=== PATIENT | male | born 2000 | race Caucasian/White ===

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

== ENCOUNTER 2024-06-23 14:07 | Emergency (ER) | payer OTHER ==
[2024-06-23 14:18] VITALS: RESP 18
--- NOTE | 2024-06-23 14:54 | XR ---
EXAMINATION TYPE: XR foot limited RT DATE OF EXAM: 06/23/2024 COMPARISON: NONE CLINICAL INDICATION: Male, 23 years old with history of crush; TECHNIQUE: Three views are submitted. FINDINGS: Soft tissue edema deforming the base of the proximal phalanx first digit suspicious for fracture. Fra cture extends to the articular surface but not as well seen on the lateral view. IMPRESSION: 1. Soft tissue edema first digit with findings suspicious for fracture base distal phalanx first jonathan hilton [facility], , 06/23/2024 2:51 PM
[2024-06-23] MEDS: KETOROLAC 15 MG/ML 1 ML VIAL IM STA ×2 (15:19→16:45)
[2024-06-23] MEDS: LIDOCAINE 1% INJ 10MG/ML (20 ML MDV) SQ ONE (15:21)
[2024-06-23] MEDS: ACET/COD 300 MG/30 MG STARTER PACK 6 TAB BTL PO STA (17:56)
[2024-06-23 18:00] VITALS: BP 112/86; PULSE 82; TEMP 98
--- NOTE | 2024-06-23 18:36 | ED ---
Lower Extremity Injury HPI - General Chief Complaint: Extremity Injury, Lower Stated Complaint: [facility] R Toe Injury Time Seen by Provider: 06/23/24 14:23 Source: patient, RN notes reviewed Mode of arrival: ambulatory Limitations: no limitations - History of Present Illness Initial Comments: This is a 23-year-old male presenting with right toe injury/pain (8 out of 10) and occurred today. Patient states he was at work when a piece of plywood fell onto his right great toe and caused significant injury despite wearing boots. Patient states he is up-to-date with tetanus. Denies any other injury or complaint. MD Complaint: foot injury Onset/Timin -: hour(s) Injury: Foot: Right Type of Injury: blunt Place: work Severity scale (1-10): 8 Worsens With: weight bearing Context: direct blow - Related Data Previous Rx's Medication Instructions Recorded Ondansetron [Zofran ODT] 4 mg PO Q8HR PRN #5 tab 10/31/21 Bacitracin/Polymyx Oint 1 applic TOPICAL BID #30 gm 06/23/24 [Polysporin Oint] Cephalexin [Keflex] 500 mg PO Q6HR 10 Days #40 cap 06/23/24 Allergies Allergy/AdvReac Type Severity Reaction Status Date / Time venom-honey bee Allergy Unknown Verified 06/23/24 14:18 Review of Systems ROS Statement: Those systems with pertinent positive or pertinent negative responses have been documented in the HPI. ROS Other: All systems not noted in ROS Statement are negative. Past Medical History Past Medical History: No Reported History History of Any Multi-Drug Resistant Organisms: None Reported Past Surgical History: No Surgical Hx Reported Past Psychological History: No Psychological Hx Reported Smoking Status: Former smoker Past Alcohol Use History: Occasional Past Drug Use History: None Reported General Exam Limitations: no limitations General appearance: alert, in no apparent distress Head exam: Present: atraumatic, normocephalic, normal inspection Eye exam: Present: normal appearance, PERRL, EOMI. Absent: scleral icterus, conjunctival injection, periorbital swelling ENT exam: Present: normal exam, mucous membranes moist Neck exam: Present: normal inspection. Absent: tenderness, meningismus, lymphadenopathy Respiratory exam: Present: normal lung sounds bilaterally. Absent: respiratory distress, wheezes, rales, rhonchi, stridor Cardiovascular Exam: Present: regular rate, normal rhythm, normal heart sounds. Absent: systolic murmur, diastolic murmur, rubs, gallop, clicks GI/Abdominal exam: Present: soft, normal bowel sounds. Absent: distended, tenderness, guarding, rebound, rigid Extremities exam: Present: full ROM, tenderness (Positive right great toe edema nail appears detached from nail bed. 2 cm vertical laceration noted on lateral aspect of great toe. Bleeding controlled and no obvious foreign body or deformity), normal capillary refill. Absent: pedal edema, joint swelling, calf tenderness Back exam: Present: normal inspection Neurological exam: Present: alert, oriented X3, CN II-XII intact Psychiatric exam: Present: normal affect, normal mood Skin exam: Present: warm, dry, intact, normal color. Absent: rash Course Vital Signs 06/23/24 06/23/24 14:13 17:58 Temperature 98.4 F 98.0 F Pulse Rate 86 82 Respiratory 18 18 Rate Blood Pressure 110/80 112/86 O2 Sat by Pulse 100 98 Oximetry Procedures - Laceration Laceration #1 Consent Obtained: verbal consent Indication: laceration Site: foot Size (cm): 2 Description: linear Depth: simple, single layer Anesthetic Used: lidocaine 1% Anesthesia Technique: local infiltration Amount (mls): 6 Pre-repair: wound explored, irrigated extensively Type of Sutures: nylon Size of Sutures: 4-0 Number of Sutures: 6 Technique: running Patient Tolerated Procedure: well Additional Comments: Complete removal of right great toenail also performed with ongoing anesthesia following treatment of laceration. Exposed toenail bed covered with 2 x 2 gauze and secured with clear tape. Toe and foot cleaned thoroughly with gauze and sterile water. Medical Decision Making - Medical Decision Making Was pt. sent in by a medical professional or institution (, PA, PATIENT RELATIONS SPECIALIST, urgent care, hospital, or shelter...) When possible be specific @ -No Did you speak to anyone other than the patient for history (EMS, parent, family, police, friend...)? What history was obtained from this source @ -No Did you review nursing and triage notes (agree or disagree)? Why? @ -I reviewed and agree with nursing and triage notes Were old charts reviewed (outside hosp., previous admission, EMS record, old EKG, old radiological studies, urgent care reports/EKG's, shelter records)? Report findings @ -No old charts were reviewed Differential Diagnosis (chest pain, altered mental status, abdominal pain women, abdominal pain men, vaginal bleeding, weakness, fever, dyspnea, syncope, headache, dizziness, GI bleed, back pain, seizure, CVA, palpatations, mental health, musculoskeletal)? @ -Toe fracture, "toe contusion, damage to nail, toe laceration this is not exhaustive but EKG interpreted by me (3pts min.). @ -Not done X-rays interpreted by me (1pt min.). @ -Right foot x-ray shows undisplaced fracture and base of right great toe distal phalanx CT interpreted by me (1pt min.). @ -None done U/S interpreted by me (1pt. min.). @ -None done What testing was considered but not performed or refused? (CT, X-rays, U/S, labs)? Why? @ -None What meds were considered but not given or refused? Why? @ -None Did you discuss the management of the patient with other professionals (professionals i.e. , PA, PATIENT RELATIONS SPECIALIST, lab, RT, psych nurse, social insurance adviser, landscaper, teacher, low altitude air defense officer, case finishing machine adjuster)? Give summary @ -No Was smoking cessation discussed for >3mins.? @ -No Was critical care preformed (if so, how long)? @ -No Were there social determinants of health that impacted care today? How? (Homelessness, low income, unemployed, alcoholism, drug addiction, transportation, low edu. Level, literacy, decrease access to med. care, penitentiary, rehab)? @ -No Was there de-escalation of care discussed even if they declined (Discuss DNR or withdrawal of care, Hospice)? DNR status @ -No What co-morbidities impacted this encounter? (DM, HTN, Smoking, COPD, CAD, Cancer, CVA, ARF, Chemo, Hep., AIDS, mental health diagnosis, sleep apnea, morbid obesity)? @ -None Was patient admitted / discharged? Hospital course, mention meds given and route, prescriptions, significant lab abnormalities, going to OR and other pertinent info. @ -Discharge. X-ray revealed fracture to distal phalanx of right great toe. Right great toe digital block performed and laceration sutured under sterile conditions. Toenail lifted from nail bed and removed. Gauze and tape placed over nail bed. Patient provided postop soft tissue Keflex sent to pharmacy.. Advised follow-up with primary care. Undiagnosed new problem with uncertain prognosis? @ -No Drug Therapy requiring intensive monitoring for toxicity (Heparin, Nitro, Insulin, Cardizem)? @ -No Were any procedures done? @ -Yes laceration sutured and right great toe nail removed Diagnosis/symptom? @ -Toe fracture, laceration, damage to nail Acute, or Chronic, or Acute on Chronic? @ -Default Uncomplicated (without systemic symptoms) or Complicated (systemic symptoms)? @ -Uncomplicated Side effects of treatment? @ -No Exacerbation, Progression, or Severe Exacerbation? @ -No Poses a threat to life or bodily function? How? (Chest pain, [place], [place], pneumonia, PE, COPD, DKA, ARF, appy, cholecystitis, CVA, Diverticulitis, Homicidal, Suicidal, threat to staff... and all critical care pts) @ -No Disposition Clinical Impression: Toe fracture, Contusion of toe with damage to nail Disposition: HOME SELF-CARE Condition: Good Instructions (If sedation given, give patient instructions): Care For Your Stitches (ED), Toe Fracture (ED) Additional Instructions: Keep sutures clean with antibacterial soap and water and change dressing at least twice daily. Advised suture removal in 10 to 14 days. Prescriptions: Cephalexin [Keflex] 500 mg PO Q6HR 10 Days #40 cap Bacitracin/Polymyx Oint [Polysporin Oint] 1 applic TOPICAL BID #30 gm Is patient prescribed a controlled substance at d/c from ED?: No Referrals: Richy Posadas DO [Primary Care Provider] - 1-2 days Time of Disposition: 18:34
== END 2024-06-23 18:37 | disposition home or self-care (01) ==
LOC: EC 14:07
DX: S92.421A Displaced fracture of distal phalanx of right great toe, initial encounter for closed fracture (principal); Z91.030 Bee allergy status; Z87.891 Personal history of nicotine dependence; W20.8XXA Other cause of strike by thrown, projected or falling object, initial encounter; Y99.0 Civilian activity done for income or pay
CPT/HCPCS: 73620; 12001; 99283; 96372 ×2; J2003; J1885

== ENCOUNTER → 2024-07-31 | Outpatient (CLI) | payer OTHER ==
--- NOTE | 2024-07-31 13:14 | XR ---
EXAMINATION TYPE: XR foot complete RT DATE OF EXAM: 07/31/2024 12:40 PM COMPARISON: 06/23/2024 CLINICAL INDICATION: Male, 23 years old with history of S92.401A; PHH, pain TECHNIQUE: XR foot complete RT examined in the AP, oblique, and lateral projections. FINDINGS/IMPRESSION: 1. No significant displacement of the distal first digit phalanx fracture. There remains fracture li ne present. There is good alignment of the articular surface. 2. No new fractures. 3. No significant degeneration changes in the dorsal foot. [facility], , 07/31/2024 1:11 PM
== END | disposition home or self-care (01) ==
LOC: RADXRMAIN 12:16
DX: S92.401A Displaced unspecified fracture of right great toe, initial encounter for closed fracture (principal)